=== PATIENT | female | born 1980 ===

== ENCOUNTER 2019-09-20 15:07 | Observation (INO) ==
[2019-09-20] MEDS ORDERED: *HR* HYDROmorphone (PF) 1 MG/ML SYRINGE IVP ONE (15:59)
[2019-09-20] MEDS ORDERED: Ondansetron 4 MG/2 ML VIAL IVP ONE (15:59)
[2019-09-20 16:50] LABS: Basophils # 0.1 K/mcL (0.0-0.2); Basophils % 0.4 %; Eosinophils # 0.1 K/mcL (0.0-0.6); Eosinophils % 0.6 %; Hematocrit 26.1 % (35.3-44.9); Hemoglobin 8.3 g/dL (11.5-15.4); Immature Granulocytes % 0.6 % (0-4); Lymphocytes # 1.3 K/mcL (0.6-4.6); Lymphocytes % 9.4 %; Mean Corpuscular HGB Conc 31.8 g/dL (31.6-35.5); Mean Corpuscular Hemoglobin 26.3 pg (28.0-33.3); Mean Corpuscular Volume 82.9 fL (83.0-100.0); Mean Platelet Volume 8.2 fL (9.4-12.4); Monocytes # 1.4 K/mcL (0.0-1.3); Monocytes % 10.2 %; Platelet Count 559 K/mcL (140-400); Red Blood Count 3.15 M/mcL (3.82-4.97); Red Cell Distribution Width 16.9 % (11.5-14.5); Segmented Neutrophils % 78.8 %
[2019-09-20 17:09] LABS: INR 1.4
[2019-09-20 17:12] LABS: Activated Partial Thrombo Time 32.1 Seconds (26.0-36.0)
[2019-09-20 17:26] LABS: BUN/Creatinine Ratio 11 (6-26); Blood Urea Nitrogen 10 mg/dL (6-20); Calcium 9.7 mg/dL (8.6-10.3); Carbon Dioxide 24 mEq/L (23-29); Chloride 96 mEq/L (98-107); Glucose 100 mg/dL (70-105); Osmolality,Calculated 273 (280-300); Potassium 3.5 mEq/L (3.5-5.1); Sodium 132 mEq/L (136-145); eGFR For African Americans > 60 (> 60); eGFR For Non-African Americans > 60 (> 60)
[2019-09-20] MEDS ORDERED: *HR* Enoxaparin 80 MG/0.8 ML SYRINGE SQ STA (17:27)
[2019-09-20] MEDS ORDERED: *HR* FentaNYL (PF) 100 MCG/2 ML VIAL IVP ONE (17:29)
[2019-09-20] MEDS ORDERED: Acetaminophen 325 MG TABLET PO PRN (19:04)
[2019-09-20] MEDS ORDERED: Ondansetron ODT 4 MG TAB.RAPDIS SL PRN (19:04)
[2019-09-20] MEDS ORDERED: Naloxone 0.4 MG/ML INJ IVP PRN (19:04)
[2019-09-20] MEDS: *HR* HYDROcodone/Acet 5/325 mg TABLET PO PRN (19:57)
[2019-09-20] MEDS ORDERED: *HR* OxyCODONE Immed Rel 5 MG TABLET PO PRN (21:01)
[2019-09-20] MEDS ORDERED: Ringers Solution, Lactated 500 ML IVC ONE (21:05)
[2019-09-20] MEDS: Ketorolac 15 MG/ML VIAL IVP PRN (21:22)
[2019-09-21 02:01] LABS: Hematocrit 22.2 % (35.3-44.9); Hemoglobin 7.2 g/dL (11.5-15.4); Mean Corpuscular HGB Conc 32.4 g/dL (31.6-35.5); Mean Corpuscular Hemoglobin 26.9 pg (28.0-33.3); Mean Corpuscular Volume 82.8 fL (83.0-100.0); Mean Platelet Volume 8.3 fL (9.4-12.4); Platelet Count 448 K/mcL (140-400); Red Blood Count 2.68 M/mcL (3.82-4.97)
[2019-09-21 02:05] LABS: INR 1.5
[2019-09-21 02:07] LABS: Activated Partial Thrombo Time 31.1 Seconds (26.0-36.0)
[2019-09-21 02:19] LABS: BUN/Creatinine Ratio 11 (6-26); Blood Urea Nitrogen 10 mg/dL (6-20); Calcium 9.2 mg/dL (8.6-10.3); Carbon Dioxide 29 mEq/L (23-29); Chloride 98 mEq/L (98-107); Glucose 107 mg/dL (70-105); Magnesium 1.8 mg/dL (1.6-2.6); Osmolality,Calculated 278 (280-300); Potassium 3.5 mEq/L (3.5-5.1); Sodium 134 mEq/L (136-145); eGFR For African Americans > 60 (> 60); eGFR For Non-African Americans > 60 (> 60)
[2019-09-21] MEDS: *HR* HYDROcodone/Acet 5/325 mg TABLET PO PRN ×2 (06:29→13:30)
[2019-09-21] MEDS: Ketorolac 15 MG/ML VIAL IVP PRN (10:40)
[2019-09-21 13:15] VITALS: BP 115/68
[2019-09-21] MEDS ORDERED: *HR* FentaNYL PATCH 50 MCG PATCH TD STA (13:57)
[2019-09-21] MEDS ORDERED: *HR* FentaNYL PATCH 75 MCG PATCH TD STA (13:59)
== END 2019-09-21 16:23 | disposition home health service (06) ==
LOC: 3BNU 15:07 → EMEROOARM 15:07 → SUATTDRO 18:30 → 3BNU 19:30
PROVIDERS: ADMIT Internal Medicine; ATTEND Internal Medicine

== ENCOUNTER 2020-04-12 03:10 | Inpatient (IN) ==
[2020-04-12] MEDS ORDERED: Isovue-370 500 ML BOTTLE IVP ONE (03:20)
[2020-04-12] MEDS ORDERED: 0.9 % Sodium Chloride 1,000 ML IV ONE (03:29)
[2020-04-12] MEDS ORDERED: *HR* HYDROmorphone (PF) 1 MG/ML SYRINGE IVP ONE ×2 (03:29→04:55)
[2020-04-12 03:43] LABS: Bacteria,Urine Moderate per hpf (None-Few); Bilirubin,Urine Negative (Negative); Blood,Urine Small (Negative); Clarity,Urine Ex.Turbid (Clear); Color,Urine Yellow (Yellow); Glucose,Urine (UA) Normal (Normal); Ketones,Urine Negative (Negative); Leukocyte Esterase,Urine Large (Negative); Mucus,Urine Few per lpf (None-Few); Nitrite,Urine Negative (Negative); PH,Urine 6.5 pH Units (5.0-8.0); Protein,Urine >=300 mg/dL (Neg-Trace); RBC,Urine 15-30 per hpf (0-3); Specific Gravity,Urine 1.015 (1.010-1.025); Urobilinogen,Urine Normal (Normal); WBC,Urine TNTC per hpf (0-3)
[2020-04-12 03:59] LABS: Basophils % 0.3 %; Eosinophils # 0.6 K/mcL (0.0-0.6); Eosinophils % 10.3 %; Hemoglobin 8.9 g/dL (11.5-15.4); Immature Granulocytes % 0.5 % (0-4); Lymphocytes # 0.5 K/mcL (0.6-4.6); Lymphocytes % 7.4 %; Mean Corpuscular HGB Conc 30.7 g/dL (31.6-35.5); Mean Corpuscular Hemoglobin 31.7 pg (28.0-33.3); Mean Corpuscular Volume 103.2 fL (83.0-100.0); Mean Platelet Volume 7.6 fL (9.4-12.4); Monocytes # 0.8 K/mcL (0.0-1.3); Monocytes % 12.7 %; Neutrophils # 4.2 K/mcL (1.6-8.9); Platelet Count 314 K/mcL (140-400); Red Blood Count 2.81 M/mcL (3.82-4.97); Red Cell Distribution Width 15.8 % (11.5-14.5); Segmented Neutrophils % 68.8 %; White Blood Count 6.1 K/mcL (4.3-11.1)
[2020-04-12 04:15] LABS: Alanine Aminotransferase 5 Units/L (7-52); Albumin 3.3 g/dL (3.5-5.7); Albumin/Globulin Ratio 1.1 (1.1-2.2); Alkaline Phosphatase 73 Units/L (34-104); Aspartate Amino Transferase 12 Units/L (13-39); BUN/Creatinine Ratio 10 (6-26); Bilirubin,Total 0.2 mg/dL (0.3-1.0); Blood Urea Nitrogen 10 mg/dL (6-20); Calcium 9.1 mg/dL (8.6-10.3); Carbon Dioxide 26 mEq/L (23-29); Chloride 105 mEq/L (98-107); Glucose 120 mg/dL (70-105); Osmolality,Calculated 288 (280-300); Potassium 3.6 mEq/L (3.5-5.1); Sodium 139 mEq/L (136-145); Total Protein 6.3 g/dL (6.4-8.9); eGFR For African Americans > 60 (> 60); eGFR For Non-African Americans > 60 (> 60)
[2020-04-12] MEDS ORDERED: 0.9 % Sodium Chloride 1,000 ML IVC ONE (04:55)
[2020-04-12] MEDS ORDERED: KETAMINE IVPB ONE (05:19)
[2020-04-12] MEDS ORDERED: SODIUM CHLORIDE 0.9% IVPB ONE (05:19)
[2020-04-12] MEDS ORDERED: Piperacillin/Tazobactam 3.375 GM in 0.9 % Sodium Chloride Mini Bag 100 ML IVPB ONE (05:30)
[2020-04-12] MEDS ORDERED: Naloxone 0.4 MG/ML INJ IVP PRN (07:26)
[2020-04-12] MEDS ORDERED: Ondansetron 4 MG/2 ML VIAL IVP PRN (07:26)
[2020-04-12] MEDS: 0.9 % Sodium Chloride 1,000 ML IVC SCH ×2 (08:31→21:46)
[2020-04-12] MEDS: *HR* HYDROmorphone (PF) 1 MG/ML SYRINGE IVP PRN ×3 (09:01→11:24)
[2020-04-12] MEDS ORDERED: *HR* OxyCODONE Immed Rel 15 MG TABLET PO PRN (09:17)
[2020-04-12] MEDS: *HR* OxyCODONE ER (12 HR) 10 MG TABLET PO SCH ×3 (10:09→21:46)
[2020-04-12] MEDS ORDERED: *HR* HYDROmorphone 20 MG/20 ML PCA IVC PRN ×3 (12:15→15:02)
[2020-04-12] MEDS ORDERED: *HR* HYDROmorphone (PF) 1 MG/ML SYRINGE IVP PRN (12:19)
[2020-04-12] MEDS: Piperacillin/Tazobactam 3.375 GM in 0.9 % Sodium Chloride Mini Bag 100 ML IVPB SCH ×2 (14:55→21:45)
[2020-04-12] MEDS: *HR* Rivaroxaban 10 MG TABLET PO SCH (17:20)
[2020-04-12] MEDS ORDERED: *HR* Heparin 5,000 UNIT/ML VIAL SQ SCH (18:00)
[2020-04-12] MEDS: Gabapentin 100 MG CAPSULE PO SCH (21:46)
[2020-04-13 03:56] LABS: Basophils % 0.2 %; Eosinophils # 0.5 K/mcL (0.0-0.6); Hematocrit 25.2 % (35.3-44.9); Hemoglobin 7.9 g/dL (11.5-15.4); Immature Granulocytes % 0.7 % (0-4); Lymphocytes # 0.4 K/mcL (0.6-4.6); Lymphocytes % 9.4 %; Mean Corpuscular HGB Conc 31.3 g/dL (31.6-35.5); Mean Platelet Volume 7.6 fL (9.4-12.4); Monocytes # 0.6 K/mcL (0.0-1.3); Monocytes % 13.7 %; Neutrophils # 2.7 K/mcL (1.6-8.9); Platelet Count 249 K/mcL (140-400); Red Blood Count 2.47 M/mcL (3.82-4.97); Red Cell Distribution Width 15.7 % (11.5-14.5); White Blood Count 4.2 K/mcL (4.3-11.1)
[2020-04-13 04:04] LABS: BUN/Creatinine Ratio 7 (6-26); Blood Urea Nitrogen 5 mg/dL (6-20); Calcium 8.9 mg/dL (8.6-10.3); Carbon Dioxide 26 mEq/L (23-29); Chloride 109 mEq/L (98-107); Glucose 96 mg/dL (70-105); Magnesium 1.7 mg/dL (1.6-2.6); Osmolality,Calculated 287 (280-300); Potassium 3.5 mEq/L (3.5-5.1); Sodium 140 mEq/L (136-145); eGFR For African Americans > 60 (> 60); eGFR For Non-African Americans > 60 (> 60)
[2020-04-13] MEDS: Piperacillin/Tazobactam 3.375 GM in 0.9 % Sodium Chloride Mini Bag 100 ML IVPB SCH ×3 (05:52→20:28)
[2020-04-13] MEDS: *HR* OxyCODONE ER (12 HR) 10 MG TABLET PO SCH ×2 (09:39→16:50)
[2020-04-13] MEDS: Gabapentin 100 MG CAPSULE PO SCH ×2 (09:39→20:28)
[2020-04-13] MEDS: polyethylene glycoL 3350 17 GM POWD.PACK PO SCH (09:39)
[2020-04-13] MEDS ORDERED: *HR* OxyCODONE ER (12 HR) 20 MG TABLET PO ONE (10:00)
[2020-04-13] MEDS ORDERED: 0.9 % Sodium Chloride 1,000 ML IVC SCH (10:01)
[2020-04-13] MEDS ORDERED: *HR* HYDROmorphone 20 MG/20 ML PCA IVC PRN (10:20)
[2020-04-13] MEDS: *HR* Rivaroxaban 10 MG TABLET PO SCH (16:50)
[2020-04-13 17:56] LABS: % Iron Saturation 10 % (15-50); Iron 14 mcg/dL (50-170); Transferrin 101 mg/dL (203-362)
[2020-04-13 18:10] LABS: Ferritin 65 ng/mL (10-120)
[2020-04-13] MEDS: *HR* HYDROmorphone 4 MG TABLET PO PRN (20:40)
[2020-04-14] MEDS: *HR* OxyCODONE ER (12 HR) 10 MG TABLET PO SCH ×3 (00:06→17:30)
[2020-04-14 05:11] LABS: Basophils % 0.5 %; Eosinophils # 0.5 K/mcL (0.0-0.6); Eosinophils % 13.1 %; Hematocrit 25.1 % (35.3-44.9); Hemoglobin 7.6 g/dL (11.5-15.4); Immature Granulocytes % 0.8 % (0-4); Lymphocytes # 0.5 K/mcL (0.6-4.6); Lymphocytes % 13.9 %; Mean Corpuscular HGB Conc 30.3 g/dL (31.6-35.5); Mean Corpuscular Hemoglobin 31.4 pg (28.0-33.3); Mean Corpuscular Volume 103.7 fL (83.0-100.0); Mean Platelet Volume 7.7 fL (9.4-12.4); Monocytes # 0.4 K/mcL (0.0-1.3); Neutrophils # 2.2 K/mcL (1.6-8.9); Platelet Count 265 K/mcL (140-400); Red Blood Count 2.42 M/mcL (3.82-4.97); Red Cell Distribution Width 15.6 % (11.5-14.5); Segmented Neutrophils % 59.7 %; White Blood Count 3.7 K/mcL (4.3-11.1)
[2020-04-14 05:30] LABS: BUN/Creatinine Ratio 8 (6-26); Blood Urea Nitrogen 6 mg/dL (6-20); Calcium 9.1 mg/dL (8.6-10.3); Carbon Dioxide 27 mEq/L (23-29); Chloride 108 mEq/L (98-107); Glucose 87 mg/dL (70-105); Osmolality,Calculated 287 (280-300); Potassium 3.5 mEq/L (3.5-5.1); Sodium 140 mEq/L (136-145); eGFR For African Americans > 60 (> 60); eGFR For Non-African Americans > 60 (> 60)
[2020-04-14] MEDS: Piperacillin/Tazobactam 3.375 GM in 0.9 % Sodium Chloride Mini Bag 100 ML IVPB SCH ×2 (05:38→14:35)
[2020-04-14] MEDS: Gabapentin 100 MG CAPSULE PO SCH (08:35)
[2020-04-14] MEDS: polyethylene glycoL 3350 17 GM POWD.PACK PO SCH (08:35)
[2020-04-14] MEDS: *HR* HYDROmorphone 4 MG TABLET PO PRN (08:39)
[2020-04-14] MEDS: *HR* Rivaroxaban 10 MG TABLET PO SCH (17:30)
[2020-04-14 18:40] VITALS: BP 123/78
== END 2020-04-14 19:47 | disposition left against medical advice (07) | DRG 463 ==
LOC: EMEROOARM 03:10 → CDU 03:10 → SUATTDRO 05:57 → CDU 06:33 → 2ANU 14:31
PROVIDERS: ADMIT Internal Medicine; ATTEND Internal Medicine

== ENCOUNTER 2020-07-11 07:36 | Inpatient (IN) ==
[2020-07-11] MEDS ORDERED: *HR* HYDROmorphone (PF) 1 MG/ML SYRINGE IVP ONE ×4 (07:51→11:49)
[2020-07-11 08:26] LABS: Basophils % 0.2 %; Eosinophils # 0.1 K/mcL (0.0-0.6); Eosinophils % 0.6 %; Hematocrit 22.9 % (35.3-44.9); Hemoglobin 6.8 g/dL (11.5-15.4); Immature Granulocytes % 1.5 % (0-4); Lymphocytes # 0.5 K/mcL (0.6-4.6); Lymphocytes % 2.8 %; Mean Corpuscular HGB Conc 29.7 g/dL (31.6-35.5); Mean Corpuscular Hemoglobin 23.5 pg (28.0-33.3); Mean Corpuscular Volume 79.2 fL (83.0-100.0); Mean Platelet Volume 8.1 fL (9.4-12.4); Monocytes # 1.4 K/mcL (0.0-1.3); Monocytes % 8.5 %; Platelet Count 538 K/mcL (140-400); Red Blood Count 2.89 M/mcL (3.82-4.97); Red Cell Distribution Width 17.7 % (11.5-14.5); Segmented Neutrophils % 86.4 %; White Blood Count 16.2 K/mcL (4.3-11.1)
[2020-07-11 08:28] LABS: Bacteria,Urine Few per hpf (None-Few); Bilirubin,Urine Negative (Negative); Blood,Urine Small (Negative); Clarity,Urine Turbid (Clear); Color,Urine Yellow (Yellow); Glucose,Urine (UA) Normal (Normal); Ketones,Urine Negative (Negative); Leukocyte Esterase,Urine Large (Negative); Nitrite,Urine Negative (Negative); PH,Urine 6.5 pH Units (5.0-8.0); Protein,Urine 70 mg/dL (Neg-Trace); RBC,Urine 30-50 per hpf (0-3); Specific Gravity,Urine 1.022 (1.010-1.025); Urobilinogen,Urine Normal (Normal); WBC,Urine TNTC per hpf (0-3)
[2020-07-11 08:42] LABS: Alanine Aminotransferase 9 Units/L (7-52); Albumin/Globulin Ratio 0.8 (1.1-2.2); Alkaline Phosphatase 210 Units/L (34-104); Aspartate Amino Transferase 13 Units/L (13-39); BUN/Creatinine Ratio 8 (6-26); Bilirubin,Indirect 0.3 mg/dL (0.0-1.0); Bilirubin,Total 0.3 mg/dL (0.3-1.0); Blood Urea Nitrogen 10 mg/dL (6-20); Calcium 10.3 mg/dL (8.6-10.3); Carbon Dioxide 28 mEq/L (23-29); Chloride 95 mEq/L (98-107); Glucose 141 mg/dL (70-105); Osmolality,Calculated 273 (280-300); Potassium 3.7 mEq/L (3.5-5.1); Sodium 131 mEq/L (136-145); eGFR For African Americans > 60 (> 60); eGFR For Non-African Americans 50 (> 60)
[2020-07-11] MEDS ORDERED: cefTRIAXone 1,000 MG in Water for inj. (sterile) 10 ML IVP ONE (10:05)
[2020-07-11] MEDS ORDERED: Naloxone 0.4 MG/ML INJ IVP PRN (10:44)
[2020-07-11] MEDS ORDERED: Ondansetron 4 MG/2 ML VIAL IVP PRN (10:44)
[2020-07-11] MEDS ORDERED: Acetaminophen 325 MG TABLET PO PRN (10:44)
[2020-07-11] MEDS ORDERED: 0.9 % Sodium Chloride 1,000 ML IVC ONE (11:08)
[2020-07-11] MEDS ORDERED: *HR* HYDROmorphone (PF) 1 MG/ML SYRINGE IVP PRN (11:09)
[2020-07-11] MEDS ORDERED: cefTRIAXone 1,000 MG in 0.9 % Sodium Chloride Mini Bag 100 ML IVPB ONE (11:10)
[2020-07-11 12:14] LABS: Adenovirus Not Detected (Not Detect); Bordetella Pertussis Not Detected (Not Detect); Chlamydophila pneumoniae Not Detected (Not Detect); Coronavirus 229E Not Detected (Not Detect); Coronavirus HKU1 Not Detected (Not Detect); Coronavirus NL63 Not Detected (Not Detect); Coronavirus OC43 Not Detected (Not Detect); Human Metapneumovirus Not Detected (Not Detect); Human Rhinovirus/Enterovirus Not Detected (Not Detect); Influenza A Subtype 2009 H1 Not Detected (Not Detect); Influenza B Not Detected (Not Detect); Mycoplasma pneumoniae Not Detected (Not Detect); Parainfluenza Virus 1 Not Detected (Not Detect); Parainfluenza Virus 2 Not Detected (Not Detect); Parainfluenza Virus 3 Not Detected (Not Detect); Parainfluenza Virus 4 Not Detected (Not Detect); Respiratory Syncytial Virus Not Detected (Not Detect); SARS-CoV-2 Not Detected (Not Detect)
[2020-07-11] MEDS ORDERED: 0.9 % Sodium Chloride 500 ML ONE (13:21)
[2020-07-11] MEDS ORDERED: Isovue-300 150 ML INFUS..BTL IVP ONE (13:54)
[2020-07-11] MEDS: Sennosides/Docusate Sodium TABLET PO SCH ×2 (15:14→20:19)
[2020-07-11] MEDS ORDERED: 0.9 % Sodium Chloride 250 ML ONE (16:36)
[2020-07-11] MEDS: 0.9 % Sodium Chloride 1,000 ML IVC SCH (19:30)
[2020-07-11] MEDS ORDERED: Acetaminophen IV 500 MG/50 ML BAG IVPB ONE (22:45)
[2020-07-12 06:01] LABS: Basophils # 0.1 K/mcL (0.0-0.2); Basophils % 0.2 %; Eosinophils # 0.2 K/mcL (0.0-0.6); Eosinophils % 0.8 %; Hematocrit 25.4 % (35.3-44.9); Hemoglobin 7.8 g/dL (11.5-15.4); Immature Granulocytes % 1.7 % (0-4); Lymphocytes # 0.4 K/mcL (0.6-4.6); Lymphocytes % 1.9 %; Mean Corpuscular HGB Conc 30.7 g/dL (31.6-35.5); Mean Corpuscular Volume 81.4 fL (83.0-100.0); Mean Platelet Volume 8.3 fL (9.4-12.4); Monocytes # 1.4 K/mcL (0.0-1.3); Monocytes % 6.5 %; Neutrophils # 19.5 K/mcL (1.6-8.9); Platelet Count 433 K/mcL (140-400); Red Blood Count 3.12 M/mcL (3.82-4.97); Red Cell Distribution Width 17.4 % (11.5-14.5); Segmented Neutrophils % 88.9 %; White Blood Count 21.9 K/mcL (4.3-11.1)
[2020-07-12] MEDS: 0.9 % Sodium Chloride 1,000 ML IVC SCH ×2 (06:01→15:55)
[2020-07-12 06:09] LABS: BUN/Creatinine Ratio 11 (6-26); Blood Urea Nitrogen 8 mg/dL (6-20); Calcium 10.2 mg/dL (8.6-10.3); Carbon Dioxide 24 mEq/L (23-29); Chloride 106 mEq/L (98-107); Glucose 105 mg/dL (70-105); Osmolality,Calculated 285 (280-300); Potassium 3.4 mEq/L (3.5-5.1); Sodium 138 mEq/L (136-145); eGFR For African Americans > 60 (> 60); eGFR For Non-African Americans > 60 (> 60)
[2020-07-12] MEDS: polyethylene glycoL 3350 17 GM POWD.PACK PO SCH (07:34)
[2020-07-12] MEDS ORDERED: Gabapentin 100 MG CAPSULE PO PRN (07:36)
[2020-07-12] MEDS ORDERED: polyethylene glycoL 3350 17 GM POWD.PACK PO PRN (07:36)
[2020-07-12] MEDS ORDERED: NON-FORMULARY MEDICATION 1 EACH EACH (Oxycodone Hcl [Oxycodone Hcl Er] 15 MG) PO SCH (07:45)
[2020-07-12] MEDS ORDERED: ETONOGESTREL 68 MG SQ SCH (07:45)
[2020-07-12] MEDS: *HR* Rivaroxaban 10 MG TABLET PO SCH (08:40)
[2020-07-12] MEDS ORDERED: cefTRIAXone 2,000 MG in 0.9 % Sodium Chloride Mini Bag 100 ML IVPB SCH (09:00)
[2020-07-12] MEDS ORDERED: ETONOGESTREL 68 MG SQ PRN (09:45)
[2020-07-12] MEDS: *HR* OxyCODONE ER (12 HR) 10 MG TABLET PO SCH ×2 (10:29→21:08)
[2020-07-12] MEDS ORDERED: Ringers Solution, Lactated 1,000 ML IVC ONE (11:06)
[2020-07-12] MEDS: Ertapenem 1,000 MG in 0.9 % Sodium Chloride Mini Bag 100 ML IVPB SCH (11:55)
[2020-07-12] MEDS: *HR* OxyCODONE Immed Rel 15 MG TABLET PO PRN (13:22)
[2020-07-12] MEDS ORDERED: Ampicillin 2 GM in 0.9 % Sodium Chloride Mini Bag 100 ML IVPB SCH (14:00)
[2020-07-12] MEDS ORDERED: DAPTOmycin 300 MG in 0.9 % Sodium Chloride 100 ML IVPB ONE (16:00)
[2020-07-13] MEDS: *HR* OxyCODONE Immed Rel 15 MG TABLET PO PRN (00:57)
[2020-07-13] MEDS: 0.9 % Sodium Chloride 1,000 ML IVC SCH ×2 (02:24→11:56)
[2020-07-13 06:10] LABS: Basophils % 0.2 %; Eosinophils # 0.2 K/mcL (0.0-0.6); Eosinophils % 1.4 %; Immature Granulocytes % 1.7 % (0-4); Lymphocytes # 0.6 K/mcL (0.6-4.6); Lymphocytes % 3.5 %; Mean Corpuscular HGB Conc 29.2 g/dL (31.6-35.5); Mean Corpuscular Hemoglobin 24.1 pg (28.0-33.3); Mean Corpuscular Volume 82.5 fL (83.0-100.0); Mean Platelet Volume 8.6 fL (9.4-12.4); Monocytes # 1.4 K/mcL (0.0-1.3); Monocytes % 8.6 %; Neutrophils # 13.5 K/mcL (1.6-8.9); Platelet Count 459 K/mcL (140-400); Red Blood Count 2.91 M/mcL (3.82-4.97); Red Cell Distribution Width 17.9 % (11.5-14.5); Segmented Neutrophils % 84.6 %
[2020-07-13 06:31] LABS: BUN/Creatinine Ratio 9 (6-26); Blood Urea Nitrogen 6 mg/dL (6-20); Calcium 8.9 mg/dL (8.6-10.3); Carbon Dioxide 22 mEq/L (23-29); Chloride 107 mEq/L (98-107); Glucose 82 mg/dL (70-105); Osmolality,Calculated 277 (280-300); Potassium 3.8 mEq/L (3.5-5.1); Sodium 135 mEq/L (136-145); eGFR For African Americans > 60 (> 60); eGFR For Non-African Americans > 60 (> 60)
[2020-07-13] MEDS: *HR* Rivaroxaban 10 MG TABLET PO SCH (08:03)
[2020-07-13] MEDS: *HR* OxyCODONE ER (12 HR) 10 MG TABLET PO SCH (08:03)
[2020-07-13] MEDS: Ertapenem 1,000 MG in 0.9 % Sodium Chloride Mini Bag 100 ML IVPB SCH (08:04)
[2020-07-13] MEDS: polyethylene glycoL 3350 17 GM POWD.PACK PO SCH (08:04)
[2020-07-13] MEDS ORDERED: 0.9 % Sodium Chloride 250 ML IVC SCH (11:30)
[2020-07-13] MEDS ORDERED: 0.9 % Sodium Chloride 250 ML ONE (12:46)
[2020-07-13 15:24] VITALS: BP 94/66
[2020-07-13] MEDS ORDERED: Sulfamethoxazole/Trimeth DS 1 EACH TABLET PO SCH (21:00)
== END 2020-07-13 16:40 | disposition home or self-care (01) | DRG 466 ==
LOC: SUATTDRO → EMEROOARM 07:36 → 2ANU 07:36 → SUATTDRO 12:26 → 2ANU 13:11
PROVIDERS: ADMIT Pharmacist; ATTEND Internal Medicine